=== PATIENT | female | born 1995 | race Two or more races ===

== ENCOUNTER 2017-12-16 23:29 | Emergency (ER) | payer MEDICAID ==
[~2017-12-16] VITALS: Ht 167.6 cm; Wt 77.1 kg
[2017-12-17 00:11] VITALS: BP 141/86
[2017-12-17] MEDS ORDERED: IBUPROFEN600 MG ORAL (00:15)
[2017-12-17] MEDS ORDERED: Norco 5mg/325mg tab ORAL ONE (00:15)
--- NOTE | 2017-12-17 00:15 | Emergency Room Report ---
History of Present Illness General Chief Complaint: Pain Source: Patient Present Illness HPI Is a 21-year-old female who is right-hand dominant. She presents with left wrist pain for last 2-3 weeks. No trauma. Lateral repetitive motion at work. Pain is throbbing pinching in nature. Localized to the base of the thumb and index and middle of the third finger. No fever chills but no nausea no vomiting. Nothing made it better nothing made it worse. no trauma. Allergies: Coded Allergies: No Known Allergies (Unverified , 12/16/17) Patient History Past Medical History: see triage record, old chart reviewed Past Surgical History: none Pertinent Family History: none Social History: Denies: smoking Last Menstrual Period: 11/21/17 Now: No : 0 Para: 0 Immunizations: other Reviewed Nursing Documentation: PMH: Agreed; PSxH: Agreed Nursing Documentation-PMH Past Medical History: No Stated History Review of Systems Eye: Denies: eye pain, blurred vision ENT: Denies: ear pain, nose congestion, throat swelling Respiratory: Denies: cough, shortness of breath Cardiovascular: Denies: chest pain, palpitations Gastrointestinal: Denies: abdominal pain, diarrhea, nausea, vomiting Musculoskeletal: Reports: joint pain; Denies: back pain Skin: Denies: rash Neurological: Denies: headache, numbness Endocrine: Denies: increased thirst, increased urine Hematologic/Lymphatic: Denies: easy bruising All Other Systems: negative except mentioned in HPI Physical Exam Vital Signs Date Time Temp Pulse Resp B/P (MAP) Pulse Ox O2 Delivery O2 Flow Rate FiO2 12/16/17 23:44 98.2 94 14 141/86 99 Room Air 98.2 vitals normal Sp02 EP Interpretation: reviewed, normal General Appearance: well appearing, no apparent distress, alert Head: normocephalic, atraumatic Eyes: bilateral eye PERRL, bilateral eye EOMI ENT: hearing grossly normal, normal pharynx Neck: full range of motion, supple, no meningismus Respiratory: chest non-tender, lungs clear, normal breath sounds Cardiovascular #1: regular rate, rhythm, no murmur Gastrointestinal: normal bowel sounds, non tender, no mass, no organomegaly, no bruit, non-distended Musculoskeletal: back normal, gait/station normal, normal range of motion, other - Left wrist: No deformity. Tenderness over the median nerve. Full range of motion the wrist, MCP joints of all fingers. Radial pulse 2+. Sensation normal. Psychiatric: mood/affect normal Skin: warm/dry Procedures Splinting Splinting : Consent: Verbal Location: left wrist Pre-Made Type: velcro Splint: volar Pre-Proc Neuro Vasc Exam: normal Post-Proc Neuro Vasc Exam: normal Patient Tolerated: Well Complications: None Medical Decision Making Diagnostic Impression: Primary Impression: Carpal tunnel syndrome of left wrist ER Course Patient with carpal tunnel syndrome. No evidence of fracture dislocation. No evidence of septic joint. We'll discharge home. Last Vital Signs Date Time Temp Pulse Resp B/P (MAP) Pulse Ox O2 Delivery O2 Flow Rate FiO2 12/16/17 23:44 98.2 94 14 141/86 99 Room Air 98.2 Status: improved Disposition: HOME, SELF-CARE Condition: Stable Scripts Ibuprofen* (MOTRIN*) 600 Mg Tablet 600 MG ORAL THREE TIMES A DAY, #30 TAB 0 Refills Prov: BRE TOVAR M.D. 12/17/17 Additional Instructions: Follow-up with your doctor in 7 days. Return if symptom worsen. You may need a referral to see a hand specialist. BRE TOVRA M.D. December 17, 2017 00:15
[2017-12-17 00:27] VITALS: BP 0/0
== END 2017-12-17 00:27 | disposition home or self-care (01) ==
LOC: EMR 23:52
DX: G56.02 Carpal tunnel syndrome, left upper limb (principal)
CPT/HCPCS: 29125; 99283